=== PATIENT | female | born 1945 | race Caucasian/White ===

== ENCOUNTER → 2017-02-15 | Outpatient (CLI) | payer MEDICARE, BC ==
[~2017-02-15] MED LIST: ACTONEL PO; CELEBREX PO; CINNAMON; CRESTOR PO; LODINE PO; MULTI-VITAMIN1 TAB PO; PHENERGAN PO; TOPROL XL PO; TRICOR PO; ZESTORETIC 20/11 TAB PO
--- NOTE | ~2017-02-15 | MY29 ---
[facility] A Service of [facility] RADIOLOGY TEXT RESULTS PATIENT: PAULINA CHAIREZ LOCATION: [facility] : 41 UNIT #: [id number] AGE: [address]: Mali Petersen MD SEX: F ORDER DR: [id number] [facility] [address] [place], [place] [address] [id number] O MR#: [id number] Acc #: [id number] NAME: PAULINA CHAIREZ : 1945 SEX: F STUDY DATE/TIME: 02/15/2017 11:15 UNIT: [facility] ROOM: STUDY DESCRIPTION: MY MEETA SCREENING W/ CAD BILAT Attending Physician: Claire Petersen M.D. Referring Physician: Claire Petersen M.D. Ordering Physician: Claire Petersen M.D. Primary Care Physician: Dalton Vanegas M.D. MEDICAL IMAGING REPORT This report is preliminary unless electronic signature is present EXAM Bilateral digital screening mammogram with CAD, 02/15/17. CLINICAL HISTORY 71-year-old asymptomatic female with no personal or family history of breast cancer. FINDINGS The background breast parenchyma consists of scattered fibroglandular densities. No suspicious mass, microcalcification, or architectural distortion. The exam is compared to prior mammograms dated 04/29/2015, and 04/17/2013. IMPRESSION Negative mammogram. BIRADS 1. RECOMMENDATIONS: Annual screening mammogram. Patients over the age of 40 are entered into a reminder system with target due date for the next mammogram. A result letter will also be sent to the patient. BIRADS: 1 Negative. Dictated by... Santy Fuentes M.D. THIS IS AN ELECTRONICALLY VERIFIED REPORT Santy Fuentes M.D. at 02/15/2017 4:48 PM [facility] TD: 02/15/2017 15:13 [facility] A Service [facility] RADIOLOGY TEXT RESULTS PATIENT: PAULINA CHAIREZ LOCATION: [facility] : 41 UNIT #: [id number] AGE: [address]: Mali Petersen MD SEX: F ORDER DR: JOB #: [id number] MEDICAL IMAGING REPORT Page 1 of 1 COPY
== END | disposition home or self-care (01) ==
LOC: CWCC 10:55
DX: Z12.31 Encounter for screening mammogram for malignant neoplasm of breast (principal)
CPT/HCPCS: G0202

== ENCOUNTER → 2017-03-15 | Outpatient (CLI) | payer MEDICARE, BC ==
--- NOTE | ~2017-03-15 | CR63 ---
[facility] A Service of [facility] RADIOLOGY TEXT RESULTS PATIENT: PAULINA CHAIREZ [place] [facility] [place] 41 UNIT #: [id number] AGE: [address]: Xavier Aldridge MD SEX: F ORDER DR: [id number] [facility] [address] [place], [place] [address] [id number] O MR#: [id number] Acc #: [id number] NAME: PAULINA CHAIREZ : 1945 SEX: F STUDY DATE/TIME: 03/15/2017 15:02 [place] [facility] [place]OM: STUDY DESCRIPTION: CR Chest 2 View Attending Physician: Xavier Aldridge M.D. Referring Physician: Xavier Aldridge M.D. Ordering Physician: Xavier Aldridge M.D. Primary Care Physician: Dalton Vanegas M.D. MEDICAL IMAGING REPORT This report is preliminary unless electronic signature is present EXAM PA and lateral chest. INDICATIONS Preop left knee arthroscopy for meniscal tear. COMPARISON 12/30/2006 FINDINGS PA and lateral views of the chest were obtained. The heart size and vascularity are normal and the lungs are clear. A gastric band device is present. The bones show mild degenerative changes. IMPRESSION No active disease. Dictated by... John Reed M.D. THIS IS AN ELECTRONICALLY VERIFIED REPORT John Reed M.D. at 03/16/2017 7:08 AM [facility] TD: 03/16/2017 01:31 JOB #: [id number] MEDICAL IMAGING REPORT Page 1 of 1 COPY
--- NOTE | ~2017-03-15 | EKG ---
PATIENT: PAULINA CHAIREZ UNIT #: [id number] Ventricular Rate: 65 BPM Atrial Rate: 65 BPM P-R Interval: 158 ms QRS Duration: 76 ms Q-T Interval: 428 ms QTC Calculation(Bezet): 445 ms P [place]: 41 degrees Calculated R [place]: -14 degrees Calculated T [place]: 12 degrees Diagnosis Line: Normal sinus rhythm Diagnosis Line: Inferior infarct , age undetermined Diagnosis Line: Cannot rule out Anterior infarct , age Diagnosis Line: undetermined Diagnosis Line: Abnormal ECG Diagnosis Line: No previous ECGs available Diagnosis Line: Confirmed by LUCA HERNÁNDEZ MD ([id number]) on Diagnosis Line: 03/16/2017 8:30:35 AM INTERPRETING MD: BETTY CORREA
[2017-03-15 14:56] LABS: HEMATOCRIT 39.9 % (35.0-45.0); HEMOGLOBIN 13.5 gm/dL (12.0-16.0); MEAN CELL VOLUME 94.3 FL (83-96); MEAN CORPUSCULAR HEMOGLOBIN 31.9 PG (28-34); MEAN CORPUSCULAR HGB CONC 33.9 g/dL (30-36); RED BLOOD COUNT 4.23 X10e (3.90-5.30); WHITE BLOOD COUNT 8.8 X10e3 (4.0-10.5)
[2017-03-15 15:01] LABS: URINE APPEARANCE CLEAR; URINE BILIRUBIN NEG (NEG); URINE BLOOD NEG (NEG); URINE COLOR YELLOW; URINE GLUCOSE NEG (NEG); URINE KETONE NEG (NEG); URINE LEUKOCYTE ESTERASE 2+ (NEG); URINE NITRATE NEG (NEG); URINE PH 5.5 (5-8); URINE PROTEIN NEG (NEG); URINE SPECIFIC GRAVITY 1.016 (1.003-1.035); URINE UROBILINOGEN 0.2 MG/DL (NEG)
[2017-03-15 15:04] LABS: CULTURE INDICATED? YES; U HYALINE CASTS AUWI 0-2 /[LPF]; URBCS1 AUWI 0-2 /[HPF] (0-2); URINE BACTERIA AUWI 1+ (NEGATIVE); URINE SQUAMOUS EPITHELIAL CELL FEW /[HPF]
[2017-03-15 15:38] LABS: BUN/CREATININE RATIO 17.14; CALCIUM SERUM 9.3 mg/dL (8.4-10.2); CREATININE SERUM 0.7 mg/dL (0.6-1.4); POTASSIUM 4.1 mmol/L (3.5-5.1)
== END | disposition home or self-care (01) ==
LOC: CEKG 14:30
PROVIDERS: Orthopaedic Surgery
DX: Z01.818 Encounter for other preprocedural examination (principal); S83.242A Other tear of medial meniscus, current injury, left knee, initial encounter
CPT/HCPCS: 36415; 71020; 80048; 81003; 85027; 87086; 93005